=== PATIENT | male | born 1990 | race Caucasian/White ===

== ENCOUNTER 2016-11-10 05:18 | Emergency (ER) | payer OTHER ==
[~2016-11-10] VITALS: Ht 167.6 cm; Wt 80.5 kg
[~2016-11-10 05:18] MED LIST: ALBU8.5H2 INHALATION; Ibuprofen PO; LORA10CA PO
[2016-11-10 05:24] VITALS: BP 125/79; PULSE 89; RESP 20; O2SAT 96
[2016-11-10] MEDS ORDERED: Albuterol 2.5 mg/3 mL Inhalation Solution NEB ONE (05:35)
[2016-11-10] MEDS ORDERED: Albuterol-Ipratropium 3 mL Inhalation Solution NEB ONE (05:35)
[2016-11-10 05:41] VITALS: PULSE 82; RESP 22; O2SAT 97
--- NOTE | 2016-11-10 06:09 | ED.REPORT ---
HPI-Dyspnea / Wheezing Date of Service Nov 10, 2016 ED Provider: Marina Cee MD Patient is a 26 year old male with a hx of asthma who presents to the ED complaining of SOB onset 0100 this morning upon waking. He used his albuterol inhaler at home without relief. Pt states he uses a spacer when he can find it. For the past few weeks he has had an intermittent L ear ache, sore throat, subjective fever, and rhinorrhea with sneezing. He denies cough, chills, diarrhea, nausea, or any other symptoms. His younger brother has been sick lately. Nursing Notes Stated Complaint: DIFFICULTY BREATHING Chief Complaint: Respiratory Distress Nursing Notes Reviewed: Yes Allergies: Coded Allergies: Penicillins (Verified Allergy, Severe, hives, 11/10/16) Food Additives (Verified Allergy, Intermediate, stomach ache, general malaise, 11/10/16) [place] (Verified Allergy, Mild, Abdominal Pain, 11/10/16) Wheat (Verified Allergy, Mild, Abdominal Pain, 11/10/16) corn (Verified Allergy, Mild, Abdominal Pain, 11/10/16) soy (Verified Allergy, Mild, Abdominal Pain, 11/10/16) tomato (Verified Allergy, Mild, Abdominal Pain, 11/10/16) latex (Verified Allergy, Unknown, 11/10/16) Uncoded Allergies: POLLENEXTRACT (Allergy, Severe, wheezing, sneezing - inhaler prn and epi pen - never needed, 12/09/08) Scheduled Albuterol HFA (Proair HFA) 8.5 Gm Hfa.aer.ad 2 PUFFS INHALATION ASDIRECTED Beclomethasone Dipropionate (Qvar) 8.7 Gm Aer.w.adap 1 PUFF INHALATION BID Scheduled PRN ([Ibuprofen]) 600 MG TABLET 600 MG PO TID PRN PRN For Pain Loratadine (Claritin) 10 Mg Capsule 10 MG PO DAILY PRN PRN allergies General Time Seen by MD: 05:32 Chief Complaint Shortness of breath Hx Obtained From: Patient Arrived By: Walk-in Sudden in Onset?: Yes Onset Occurred: 5 - 8 hours ago Symptom Duration: Since onset Recent Healthcare: No recent doctor visit, No recent hospitalization Similar Sx Previous: Yes Past Medical History Past Medical History Fibromyalgia 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 Drinks energy drinks and sodas regularly. Alcohol Use: Denies alcohol use Drug Use: Denies drug use Other Social History: Good social support Ambulatory Status Independent Review of Systems Constitutional: Reports: Fever (subjectove ), Denies: Chills Ears / Nose / Throat: Reports: Earache left, Sore throat Respiratory: Reports: Shortness of breath, Denies: Non-productive cough Allergy / Immune: Reports: Rhinorrhea, Sneezing Complete sys rev & neg: except as marked. GI: Denies: Diarrhea, Nausea Physical Exam Initial Vital Signs Vital Signs (First) Date Time Temp Pulse Resp B/P Pulse Ox O2 Delivery O2 Flow Rate FiO2 11/10/16 05:24 36.3 89 20 125/79 96 Room Air Initial VS: Reviewed, Vital signs normal Skin: Warm, Dry General/Constitutional: Awake, Alert, No acute distress Neck: Atraumatic, Full range of motion, No adenopathy Respiratory / Chest: Atraumatic, Breath sounds NL, Breath sounds = bilat, No respiratory distress, No wheezing Good air movement Cardiovascular: Regular rhythm, Heart sounds NL Mildly tachycardic serous fluid in the L ear Posterier pharyngeal erythema Lower Extremity / Pelvis / MS: Atraumatic, Inspection NL Neurologic: Oriented X3, Speech NL Upper Extremity / MS: Atraumatic, Inspection NL Interpretation & Diagnostics ECG Interpretation ECG Interpretation: Sinus rate 78 Normal interval Normal axis No actue ST,T changes unchanged from 02/2015 Time: 05:38 Interpreted by: ED physician Re-Eval/Medical Decision Med Decision/Clinical Course The patient was not in any respiratory distress, his symptoms are consistent with an upper respiratory infection. He had already been given a respiratory treatment in the emergency department and had very good aeration. He was given a dose of beclomethasone. There are no findings concerning for pneumonia. Re-Evaluation/Progress : Time of Eval: 06:40 )( Re-Eval Resp / Chest: Breath sounds normal Re-Evaluation/Progress Note: Discussed plan for discharge with inhaler and f/u. Patient understands and agrees with plan. All questions addressed at this time. Counseled Regarding: Diagnosis, Need for follow-up, When/why to return to ED Discharge & Departure Impression: Primary Impression: Upper respiratory infection URI type: unspecified URI Qualified Code: J06.9 - Acute upper respiratory infection, unspecified Disposition: Home Discharge Condition All VS Reviewed: Yes Condition: Stable Patient Instructions: Upper Respiratory Infection (ED) Additional Instructions: Thank you for entrusting us with your care. Your EKG and examination are reassuring. We did not find a dangerous cause for your symptoms at this time. We did not find any evidence of pneumonia. Use the beclomethasone inhaler until your symptoms have completely resolved. Continue to use your rescue inhaler as needed. Follow up with your primary doctor within the next 1-2 days for re-evaluation. Return to the emergency department for increased difficulty breathing or any other new or concerning symptoms. Referrals: Sergio Valencia DO (PCP) Ramón Attestation Portions of this note were transcribed by Ramin Joe. I, Dr. Cee personally performed the history, physical exam and medical decision-making; I reviewed and confirmed the accuracy of the information in the transcribed note. Signed by: Ramón Kaiser, 11/10/16 copies to: Sergio Valencia Jena M MD Nov 10, 2016 06:09 RAMIN JOE Nov 10, 2016 06:17
[2016-11-10] MEDS ORDERED: BECL8.7A6 INHALATION (06:36)
[2016-11-10 07:07] VITALS: BP 135/69; PULSE 87; RESP 20; O2SAT 98
== END 2016-11-10 06:55 | disposition home or self-care (01) ==
LOC: SED 05:18
DX: J06.9 Acute upper respiratory infection, unspecified (principal); H92.02 Otalgia, left ear; R50.9 Fever, unspecified; J45.909 Unspecified asthma, uncomplicated; F41.8 Other specified anxiety disorders; M79.7 Fibromyalgia; Z87.442 Personal history of urinary calculi; Z88.0 Allergy status to penicillin; Z91.018 Allergy to other foods; Z91.040 Latex allergy status
CPT/HCPCS: 93005; 94664; 99284; J7613; J7620